=== PATIENT | female | born 1945 | race Two or more races ===

== ENCOUNTER → 2018-03-11 | Outpatient (CLI) | payer MEDICARE ==
--- NOTE | 2018-03-12 12:05 | ECHOF ---
Referral Reason:I49.8 cardiac arrythmia MEASUREMENTS -------- HEIGHT: 162.6 cm WEIGHT: 95.3 kg BP: IVSd: 1.5 cm (0.6 - 1.1) LVIDd: 3.0 cm (3.9 - 5.3) LVPWd: 1.5 cm (0.6 - 1.1) IVSs: 1.4 cm LVIDs: 1.4 cm LVPWs: 1.9 cm Ao Diam: 3.0 cm (2.0 - 3.7) AV Cusp: 1.8 cm (1.5 - 2.6) LA Diam: 3.0 cm (2.7 - 3.8) MV EXCURSION: 11.714 mm (> 18.000) MV EF SLOPE: 63 mm/s (70 - 150) EPSS: 0.8 cm MV E Antonio: 0.64 m/s MV DecT: 216 ms MV A Antonio: 0.60 m/s MV E/A Ratio: 1.07 FINDINGS -------- Sinus rhythm with extra systolic beats. This was a technically difficult study with suboptimal views. The left ventricular size is normal. There is mild concentric left ventricular hypertrophy. Overa ll left ventricular systolic function is low-normal with, an EF between 50 - 55 %. The right ventricle is normal in size and function. The left atrium is normal in size. The right atrium was not well visualized. Lumason used The aortic valve was not well visualized. The mitral valve was not well visualized. The tricuspid valve was not well visualized. The pulmonic valve was not well visualized. CONCLUSIONS -------- 1. Sinus rhythm with extra systolic beats. 2. This was a technically difficult study with suboptimal views. 3. The left ventricular size is normal. 4. There is mild concentric left ventricular hypertrophy. 5. Overall left ventricular systolic function is low-normal with, an EF between 50 - 55 %. 6. The right ventricle is normal in size and function. 7. The left atrium is normal in size. 8. The right atrium was not well visualized. 9. Lumason used 10. The aortic valve was not well visualized. 11. The mitral valve was not well visualized. 12. The tricuspid valve was not well visualized. 13. The pulmonic valve was not well visualized. PRIMARY TEACHER: Lizeth Pearson RDCS
== END | disposition home or self-care (01) ==
LOC: RADECHMAIN 14:38
PROVIDERS: ATTEND Internal Medicine
DX: I51.7 Cardiomegaly (principal); I49.8 Other specified cardiac arrhythmias
CPT/HCPCS: C8929; Q9950; 93306

== ENCOUNTER → 2018-06-14 | Outpatient (CLI) | payer MEDICARE ==
[2018-06-14 15:00] LABS: Blood Urea Nitrogen 15 mg/dL (7-17)
--- NOTE | 2018-06-14 16:14 | CT ---
EXAMINATION TYPE: CT chest w con DATE OF EXAM: 06/14/2018 COMPARISON: NONE HISTORY: cough, SOB, chest pain X [address] DLP: 827 mGycm. Automated Exposure Control for Dose Reduction was Utilized. TECHNIQUE: CT scan of the thorax is performed following with IV Contrast, patient injected with 100 mL of Isovue 300. FINDINGS: LUNGS: There is a solid 5 mm left basilar pulmonary nodule on series 4 image 42 and may contain punct ate calcifications. Right basilar 2 mm pulmonary nodule seen on the same image is also present. Subpl eural 2 mm right lower lobe pulmonary nodule is seen on image 40. Subsolid pulmonary nodule on image 32 is present within the right midlung. Subpleural 2 mm nodule on image 36 is seen within the left lo wer lobe. 3 mm and 5 mm pulmonary nodules within the left upper lobe are present on series 4 image 29 . Lungs are grossly clear with no focal consolidation. There is no pleural effusion or pneumothorax seen. The tracheobronchial tree is patent. MEDIASTINUM: There are no greater than 1 cm hilar or mediastinal lymph nodes. No pericardial effusi on is seen. Mild coronary calcifications are present. Ascending thoracic aorta is nonenlarged measur ing 3.5 cm. OTHER: Very small hiatal hernia seen. Too small to accurately characterize solitary hypoattenuated he patic lesion measures 5.5 mm on series 3 image 65. IMPRESSION: 1. Multiple bilateral subcentimeter pulmonary nodules. These are nonspecific and few contain probable punctate calcifications. Therefore these could be granulomatous or neoplastic in follow-up CT is rec ommended in 12 months to establish stability per consensus criteria from the Fleischner [employer]. 2. No suspicious adenopathy.
== END ==
LOC: RADCTMAIN 14:31
PROVIDERS: ATTEND Internal Medicine
DX: R91.8 Other nonspecific abnormal finding of lung field (principal); R06.02 Shortness of breath; R05 Cough
CPT/HCPCS: 82565; 84520; 71260; 36415; Q9967

== ENCOUNTER 2022-03-12 11:31 | Inpatient (IN) | payer MEDICARE ==
[2022-03-12] MEDS ORDERED: IPRATROPIUM 0.5 MG/2.5 ML NEBU INHALATION STA (11:57)
[2022-03-12] MEDS ORDERED: methylPREDNISolone SOD SUCCI 125 MG/2 ML VIAL IV STA (11:57)
[2022-03-12] MEDS ORDERED: ALBUTEROL NEBULIZED 2.5 MG/3 ML INHALATION STA (11:57)
--- NOTE | 2022-03-12 12:10 | ED ---
General Adult HPI - General Chief complaint: Shortness of Breath Stated complaint: SOCORRO Time Seen by Provider: 03/12/22 11:42 Source: patient, RN notes reviewed, old records reviewed Mode of arrival: wheelchair Limitations: no limitations - History of Present Illness Initial comments: 76.-year-old female presenting for evaluation of cough and dyspnea. Symptoms have been progressive over the past one week. Patient has had cough productive of white sputum. She also reports some minimal lower extremity edema. She denies fever. She was seen by her primary care physician and told that she had an irregular heartbeat. She is a current smoker. No diagnosis of COPD. - Related Data Previous Rx's Medication Instructions Recorded Naproxen [Naprosyn] 250 mg PO BID #60 tab 10/03/16 Nitrofurantoin Monohyd/M-Cryst 100 mg PO Q12HR #10 cap 10/03/16 [Macrobid] predniSONE 50 mg PO DAILY #5 tab 10/03/16 Allergies Allergy/AdvReac Type Severity Reaction Status Date / Time amoxicillin [From Augmentin] Allergy Rash/Hives Verified 03/12/22 11:38 clavulanic acid Allergy Rash/Hives Verified 03/12/22 11:38 [From Augmentin] codeine Allergy Unknown Verified 03/12/22 11:38 Penicillins Allergy Unknown Verified 03/12/22 11:38 Childhood Review of Systems ROS Statement: Those systems with pertinent positive or pertinent negative responses have been documented in the HPI. ROS Other: All systems not noted in ROS Statement are negative. Past Medical History Past Medical History: Hyperlipidemia, Hypertension, Osteoarthritis (OA) Additional Past Medical History / Comment(s): Irregular Heart Beat, defective heart valve. History of Any Multi-Drug Resistant Organisms: None Reported Past Surgical History: Breast Surgery, Tubal Ligation Past Psychological History: No Psychological Hx Reported Smoking Status: Current every day smoker Past Alcohol Use History: None Reported Past Drug Use History: None Reported General Exam Limitations: no limitations General appearance: alert, in no apparent distress Head exam: Present: atraumatic, normocephalic Eye exam: Present: normal appearance, PERRL ENT exam: Present: normal exam Neck exam: Present: normal inspection. Absent: tenderness, meningismus Respiratory exam: Present: respiratory distress, wheezes, decreased breath sounds Cardiovascular Exam: Present: regular rate, normal rhythm GI/Abdominal exam: Present: soft. Absent: distended, tenderness, guarding Extremities exam: Present: normal capillary refill, pedal edema Neurological exam: Present: alert, oriented X3, CN II-XII intact. Absent: motor sensory deficit Psychiatric exam: Present: normal affect, normal mood Skin exam: Present: warm, dry, intact. Absent: cyanosis, diaphoretic Course Vital Signs 03/12/22 03/12/22 03/12/22 11:33 12:23 12:55 Temperature 97.9 F Pulse Rate 79 76 75 Respiratory 25 H 20 Rate Blood Pressure 143/76 122/70 O2 Sat by Pulse 91 L 93 L Oximetry 03/12/22 13:08 Temperature Pulse Rate 86 Respiratory Rate Blood Pressure O2 Sat by Pulse Oximetry EKG Findings - EKG Comments: EKG Findings:: Sinus rhythm, low voltage, rate of 86, slightly prolonged OH interval, QRS duration 94, QTC 4:15, no ST segment elevation. Medical Decision Making - Medical Decision Making 77-year-old female presenting for evaluation of progressive dyspnea. She rates smoking 6 days ago. Patient wheezing throughout with moderate respiratory distress. Chest x-ray is clear. She has a normal CBC, normal CMP, negative troponin, negative BNP. Her fluid coronavirus testing is negative. Suspect this is related to an undiagnosed COPD exacerbation. I will add on a d-dimer these results are pending. Case discussed with [facility] hospitalists. - Lab Data Result diagrams: 03/12/22 12:14 03/12/22 12:14 Lab Results 03/12/22 03/12/22 03/12/22 Range/Units 12:14 12:14 12:14 WBC 10.6 (3.8-10.6) k/uL RBC 4.78 (3.80-5.40) m/uL Hgb 16.0 (11.4-16.0) gm/dL Hct 47.7 H (34.0-46.0) % MCV 99.8 (80.0-100.0) fL MCH 33.4 (25.0-35.0) pg MCHC 33.5 (31.0-37.0) g/dL RDW 13.2 (11.5-15.5) % Plt Count 272 (150-450) k/uL MPV 8.3 Neutrophils % 66 % Lymphocytes % 20 % Monocytes % 5 % Eosinophils % 6 % Basophils % 1 % Neutrophils # 7.0 (1.3-7.7) k/uL Lymphocytes # 2.2 (1.0-4.8) k/uL Monocytes # 0.5 (0-1.0) k/uL Eosinophils # 0.7 (0-0.7) k/uL Basophils # 0.1 (0-0.2) k/uL PT 10.1 (9.0-12.0) sec INR 0.9 (<1.2) APTT 23.7 (22.0-30.0) sec Sodium 138 (137-145) mmol/L Potassium 3.9 (3.5-5.1) mmol/L Chloride 104 (98-107) mmol/L Carbon Dioxide 29 (22-30) mmol/L Anion Gap 5 mmol/L BUN 18 H (7-17) mg/dL Creatinine 0.71 (0.52-1.04) mg/dL Est GFR (CKD-EPI)AfAm >90 (>60 ml/min/1.73 sqM) Est GFR (CKD-EPI)NonAf 83 (>60 ml/min/1.73 sqM) Glucose 129 H (74-99) mg/dL Plasma Lactic Acid Darryl (0.7-2.0) mmol/L Calcium 9.1 (8.4-10.2) mg/dL Magnesium 2.0 (1.6-2.3) mg/dL Total Bilirubin 0.7 (0.2-1.3) mg/dL AST 24 (14-36) U/L ALT 11 (4-34) U/L Alkaline Phosphatase 78 (38-126) U/L Troponin I (0.000-0.034) ng/mL NT-Pro-B Natriuret Pep pg/mL Total Protein 6.8 (6.3-8.2) g/dL Albumin 3.5 (3.5-5.0) g/dL Coronavirus (PCR) (Not Detectd) Influenza Type A RNA (Not Detectd) Influenza Type B (PCR) (Not Detectd) 03/12/22 03/12/22 03/12/22 Range/Units 12:14 12:14 12:14 WBC (3.8-10.6) k/uL RBC (3.80-5.40) m/uL Hgb (11.4-16.0) gm/dL Hct (34.0-46.0) % MCV (80.0-100.0) fL MCH (25.0-35.0) pg MCHC (31.0-37.0) g/dL RDW (11.5-15.5) % Plt Count (150-450) k/uL MPV Neutrophils % % Lymphocytes % % Monocytes % % Eosinophils % % Basophils % % Neutrophils # (1.3-7.7) k/uL Lymphocytes # (1.0-4.8) k/uL Monocytes # (0-1.0) k/uL Eosinophils # (0-0.7) k/uL Basophils # (0-0.2) k/uL PT (9.0-12.0) sec INR (<1.2) APTT (22.0-30.0) sec Sodium (137-145) mmol/L Potassium (3.5-5.1) mmol/L Chloride (98-107) mmol/L Carbon Dioxide (22-30) mmol/L Anion Gap mmol/L BUN (7-17) mg/dL Creatinine (0.52-1.04) mg/dL Est GFR (CKD-EPI)AfAm (>60 ml/min/1.73 sqM) Est GFR (CKD-EPI)NonAf (>60 ml/min/1.73 sqM) Glucose (74-99) mg/dL Plasma Lactic Acid Darryl 1.1 (0.7-2.0) mmol/L Calcium (8.4-10.2) mg/dL Magnesium (1.6-2.3) mg/dL Total Bilirubin (0.2-1.3) mg/dL AST (14-36) U/L ALT (4-34) U/L Alkaline Phosphatase (38-126) U/L Troponin I <0.012 (0.000-0.034) ng/mL NT-Pro-B Natriuret Pep 218 pg/mL Total Protein (6.3-8.2) g/dL Albumin (3.5-5.0) g/dL Coronavirus (PCR) (Not Detectd) Influenza Type A RNA (Not Detectd) Influenza Type B (PCR) (Not Detectd) 03/12/22 03/12/22 Range/Units 12:23 12:23 WBC (3.8-10.6) k/uL RBC (3.80-5.40) m/uL Hgb (11.4-16.0) gm/dL Hct (34.0-46.0) % MCV (80.0-100.0) fL MCH (25.0-35.0) pg MCHC (31.0-37.0) g/dL RDW (11.5-15.5) % Plt Count (150-450) k/uL MPV Neutrophils % % Lymphocytes % % Monocytes % % Eosinophils % % Basophils % % Neutrophils # (1.3-7.7) k/uL Lymphocytes # (1.0-4.8) k/uL Monocytes # (0-1.0) k/uL Eosinophils # (0-0.7) k/uL Basophils # (0-0.2) k/uL PT (9.0-12.0) sec INR (<1.2) APTT (22.0-30.0) sec Sodium (137-145) mmol/L Potassium (3.5-5.1) mmol/L Chloride (98-107) mmol/L Carbon Dioxide (22-30) mmol/L Anion Gap mmol/L BUN (7-17) mg/dL Creatinine (0.52-1.04) mg/dL Est GFR (CKD-EPI)AfAm (>60 ml/min/1.73 sqM) Est GFR (CKD-EPI)NonAf (>60 ml/min/1.73 sqM) Glucose (74-99) mg/dL Plasma Lactic Acid Darryl (0.7-2.0) mmol/L Calcium (8.4-10.2) mg/dL Magnesium (1.6-2.3) mg/dL Total Bilirubin (0.2-1.3) mg/dL AST (14-36) U/L ALT (4-34) U/L Alkaline Phosphatase (38-126) U/L Troponin I (0.000-0.034) ng/mL NT-Pro-B Natriuret Pep pg/mL Total Protein (6.3-8.2) g/dL Albumin (3.5-5.0) g/dL Coronavirus (PCR) Not Detected (Not Detectd) Influenza Type A RNA Not Detected (Not Detectd) Influenza Type B (PCR) Not Detected (Not Detectd) Disposition Clinical Impression: Acute exacerbation of chronic obstructive pulmonary disease Disposition: ADMITTED IP TO THIS HOSP Condition: Stable Is patient prescribed a controlled substance at d/c from ED?: No Referrals: Sonya Mack MD [Primary Care Provider] - 1-2 days Time of Disposition: 14:02
[2022-03-12 12:30] LABS: Basophils # (A) 0.1 k/uL (0-0.2); Basophils % (A) 1 %; Eosinophils # (A) 0.7 k/uL (0-0.7); Eosinophils % (A) 6 %; HCT 47.7 % (34.0-46.0); Lymphocytes # (A) 2.2 k/uL (1.0-4.8); Lymphocytes % (A) 20 %; MCH 33.4 pg (25.0-35.0); MCHC 33.5 g/dL (31.0-37.0); MCV 99.8 fL (80.0-100.0); Mean Platelet Volume 8.3; Monocytes # (A) 0.5 k/uL (0-1.0); Monocytes % (A) 5 %; Neutrophils % (A) 66 %; Platelet Count 272 k/uL (150-450); RBC 4.78 m/uL (3.80-5.40); RDW 13.2 % (11.5-15.5); WBC 10.6 k/uL (3.8-10.6)
[2022-03-12 12:35] LABS: INR 0.9 (<1.2); Partial Thromboplastin Time 23.7 sec (22.0-30.0); Prothrombin Time 10.1 sec (9.0-12.0)
[2022-03-12 12:42] LABS: ALT 11 U/L (4-34); AST 24 U/L (14-36); African American GFR (CKD) >90 (>60 ml/min/1.73 sqM); Albumin 3.5 g/dL (3.5-5.0); Alkaline Phosphatase 78 U/L (38-126); Anion Gap 5 mmol/L; Blood Urea Nitrogen 18 mg/dL (7-17); Calcium 9.1 mg/dL (8.4-10.2); Carbon Dioxide 29 mmol/L (22-30); Chloride 104 mmol/L (98-107); Glucose 129 mg/dL (74-99); Non-African American GFR(CKD) 83 (>60 ml/min/1.73 sqM); Sodium 138 mmol/L (137-145); Total Bilirubin 0.7 mg/dL (0.2-1.3); Total Protein 6.8 g/dL (6.3-8.2)
[2022-03-12 12:47] LABS: Potassium 3.9 mmol/L (3.5-5.1)
--- NOTE | 2022-03-12 13:50 | XR ---
EXAMINATION TYPE: XR chest 2V DATE OF EXAM: 03/12/2022 COMPARISON: 02/24/2018 HISTORY: Shortness of breath TECHNIQUE: Frontal and lateral views of the chest are obtained. FINDINGS: Scattered senescent parenchymal changes noted. Hyperinflation compatible with COPD. No evidence for infiltrate. No evidence for atelectasis. Heart size is stable. Mediastinal structures are stable and grossly unremarkable. No evidence for hilar prominence. Degenerative changes dorsal spine. IMPRESSION: 1. No evidence for acute pulmonary disease.
[2022-03-12] MEDS ORDERED: IPRATROPIUM-ALBUTEROL 3 ML NEB INHALATION PRN (14:00)
[2022-03-12] MEDS: AZITHROMYCIN 500 MG TAB PO SCH (14:23)
[2022-03-12] MEDS: IPRATROPIUM-ALBUTEROL 3 ML NEB INHALATION SCH ×2 (15:10→20:26)
[2022-03-12] MEDS: methylPREDNISolone SOD SUCCI 125 MG/2 ML VIAL IV SCH ×2 (17:32→23:59)
--- NOTE | 2022-03-12 17:38 | CT ---
CT CHEST FOR PULMONARY EMBOLISM. EXAMINATION TYPE: CT angio chest DATE OF EXAM: 03/12/2022 INDICATION: chest pain, SOB CT DLP: 527.2 mGycm, Automated exposure control for dose reduction was used. CONTRAST: Patient injected with 80cc mL of Isovue 370. COMPARISON: TECHNIQUE: CT of the chest is performed on a spiral scan at 2 mm thick sections. Study is performed with intravenous contrast timed for evaluation for pulmonary embolism. This will limit additional po rtions of the evaluation. 3-D MIP images reconstructed by the technologist are reviewed on the compu ter in the coronal and sagittal planes. FINDINGS: No persistent filling defects are evident to suggest an acute pulmonary embolism. No mediastinal or hilar adenopathy enlarged by CT criteria is evident. The ascending aorta diameter at the level of the main pulmonary artery is 3.7 cm. The main pulmonary artery diameter at the bifur cation is 2.7 cm. Small area of pneumonitis or pleural thickening is present in the posterior right apex lesion 1.2 cm. Series 401 image 34 lung windows. Punctate peripheral nodularities in the anterior lateral right upp er lung field. Series 401 image 50. Mild basilar infiltrate is present bilaterally. This is nonspecif ic. Atelectasis and pneumonia can be considered. Tiny nodularity within the lateral left upper lung f ield may remain present. No interval growth is evident. Right middle lobe nodularity from previous ex am is not identified on current study Limited CT section through the upper abdomen are unremarkable. IMPRESSIONS: 1. No acute pulmonary embolism. 2. Area of pneumonitis in the posterior right lung. Follow-up can be performed. 3. No new or increasing size nodules are evident.
--- NOTE | 2022-03-12 18:21 | HP ---
HISTORY AND PHYSICAL CHIEF COMPLAINT: Shortness of breath. HISTORY OF PRESENT ILLNESS: This 77-year-old woman with a past medical history of hypertension, hyperlipidemia, being followed by Dr. Mack in the outpatient setting, was living in [place]. The patient developed some shortness of breath over the past several days and because of the family insistence, the patient came to [facility]. The patient had bilateral rhonchi. COPD was suspected. D-dimer is also elevated. There is no history of any fever, rigor or chills. Patient has significant history of smoking, up to one and a half packs per day. The patient also had an apparent irregular heartbeat previously. Occasional PVCs are noted on the monitor. PAST MEDICAL HISTORY: Hypertension, hyperlipidemia, DJD. MEDICATIONS: Home medications are reviewed and include Macrobid and Cozaar. Doses are reviewed. ALLERGIES: Reviewed. They include AMOXICILLIN. FAMILY HISTORY: No history of heart disease or strokes in the family. SOCIAL HISTORY: History of smoking. REVIEW OF SYSTEMS: Fourteen-point review of systems negative except as mentioned earlier. PHYSICAL EXAMINATION: Pulse is 88, blood pressure 115/64, respiration 20, pulse ox 92% on 4 L. HEENT: Conjunctivae normal. Oral mucosa moist. NECK: No jugular venous distention. CARDIOVASCULAR: S1, S2 muffled. RESPIRATION: Breath sounds diminished at the bases. A few scattered rhonchi and crackles. Expiratory wheezing. ABDOMEN: Soft, obese, non-tender. LEGS: Minimal edema. NERVOUS SYSTEM: No focal deficit. SKIN: No ulcer, rash, bleeding. JOINTS: No active deforming arthropathy. LABS: CBC within normal limits. D-dimer is 1.65. ASSESSMENT: 1. Shortness of breath for evaluation; possible chronic obstructive pulmonary disease, acute exacerbation; rule out acute pulmonary embolism. 2. Rule out cardiac arrhythmia. 3. Elevated D-dimer. 4. Hypertension. 5. Hyperlipidemia. 6. Degenerative joint disease. 7. History of defective heart valve. RECOMMENDATIONS AND DISCUSSION: In this 77-year-old woman who presented with multiple complex medical issues, we will monitor the patient closely. I recommend empiric bronchodilator treatment, CT angio of the chest. Otherwise, I would also recommend resuming the home medications. DVT prophylaxis. Pulmonary consultation. Prognosis guarded because of multiple complex medical issues. Further recommendations to follow. A copy of dictation is being forwarded to Dr. Mack, who is the primary physician. MMODL / IJN: [id number] /
[2022-03-12 18:52] LABS: Appearance,Urine Clear (Clear); Bilirubin,Urine Negative (Negative); Blood,Urine Negative (Negative); Color,Urine Yellow; Glucose,Urine (UA) Negative (Negative); Ketones,Urine Trace (Negative); Leukocyte Esterase,Urine Negative (Negative); Nitrite,Urine Negative (Negative); PH, Urine 5.5 (5.0-8.0); Protein,Urine Trace (Negative); Urobilinogen,Urine <2.0 mg/dL (<2.0)
[2022-03-12 19:01] LABS: Specific Gravity,Urine 1.047 (1.001-1.035)
--- NOTE | 2022-03-12 19:21 | US ---
EXAMINATION TYPE: US venous doppler duplex LE BI DATE OF EXAM: 03/12/2022 7:07 PM COMPARISON: NONE CLINICAL HISTORY: dvt. Swollen feet SIDE PERFORMED: Bilateral TECHNIQUE: The lower extremity deep venous system is examined utilizing real time linear array sonog johanna with graded compression, doppler sonography and color-flow sonography. VESSELS IMAGED: Common Femoral Vein Deep Femoral Vein Greater Saphenous Vein * Femoral Vein Popliteal Vein Small Saphenous Vein * Proximal Calf Veins (* superficial vessels) Right Leg: Negative for DVT Left Leg: Negative for DVT IMPRESSION: 1. Bilateral lower extremity ultrasound negative for deep venous thrombosis.
[2022-03-13 05:21] VITALS: RESP 18; TEMP 98.2
[2022-03-13] MEDS: methylPREDNISolone SOD SUCCI 125 MG/2 ML VIAL IV SCH ×2 (05:25→13:03)
[2022-03-13 05:43] VITALS: BP 97/59
[2022-03-13] MEDS: AZITHROMYCIN 500 MG TAB PO SCH (08:44)
[2022-03-13] MEDS: LOSARTAN 50 MG TAB PO SCH ×2 (08:44→08:45)
[2022-03-13] MEDS: IPRATROPIUM-ALBUTEROL 3 ML NEB INHALATION SCH ×3 (08:58→15:15)
[2022-03-13] MEDS ORDERED: ESCITALOPRAM 5 MG TAB PO SCH (09:00)
[2022-03-13] MEDS ORDERED: ATORVASTATIN 20 MG TAB PO SCH (09:00)
[2022-03-13] MEDS ORDERED: hydroCHLOROthiazide 12.5 MG CAP PO SCH (09:00)
[2022-03-13] MEDS ORDERED: ASPIRIN 81 MG PO SCH (09:00)
[2022-03-13 09:24] LABS: Basophils # (A) 0.03 X 10*3/uL (0.00-0.10); Basophils % (A) 0.2 %; Eosinophils # (A) 0 X 10*3/uL (0.04-0.35); Eosinophils % (A) 0 %; HCT 42.9 % (37.2-46.3); HGB 13.9 g/dL (12.0-15.0); Immature Grans, Automated 0.9 %; Lymphocytes # (A) 1.18 X 10*3/uL (0.90-5.00); Lymphocytes % (A) 8.1 %; MCHC 32.4 g/dL (32.0-37.0); MCV 98.6 fL (80.0-97.0); Monocytes # (A) 0.24 X 10*3/uL (0.20-1.00); Monocytes % (A) 1.6 %; NRBC Per 100 WBC 0 /100 WBCS (0.0-0.0); Neutrophils # (A) 12.98 X 10*3/uL (1.80-7.70); Neutrophils % (A) 89.2 %; Platelet Count 244 X 10*3/uL (140-440); RBC 4.35 X 10*6/uL (4.10-5.20); RDW 12.9 % (11.5-14.5); WBC 14.56 X 10*3/uL (4.50-10.00)
[2022-03-13 09:54] LABS: African American GFR (CKD) 96.9 (60.0-200.0); Anion Gap 10.9 mmol/L (10.00-18.00); BUN/Creat Ratio 28.29 Ratio (12.00-20.00); Blood Urea Nitrogen 19.8 mg/dL (9.0-27.0); Calcium 9.1 mg/dL (8.7-10.3); Carbon Dioxide 28.1 mmol/L (20.0-27.5); Non-African American GFR(CKD) 83.6 (60.0-200.0); Potassium 4.3 mmol/L (3.5-5.5)
--- NOTE | 2022-03-13 10:35 | P.CNPUL ---
History of Present Illness Consult date: 03/13/22 Requesting physician: Ray E Bri Reason for consult: dyspnea, COPD, abnormal CXR/CT Chief complaint: Shortness of breath, cough, congestion History of present illness: This is a very pleasant 77-year-old female patient who follows with Dr. Mack as her primary care provider. She has a history of morbid obesity, arthritis, hypertension, hyperlipidemia, anicteric and ongoing tobacco dependence of greater than 60 years. She had recently moved to [place] but was down here to see Dr. Mack for complaints of increasing shortness of breath, dyspnea on exertion and cough of clear productive sputum as well as UTI symptoms and possible depression. She was initiated on Macrobid and Lexapro, but was not feeling much better and came to the emergency room yesterday. Chest x-ray reveals no evidence of acute pulmonary disease. CT angiogram revealed no acute pulmonary process. Area of pneumonitis in the posterior right lung. Possibly chronic. Doppler of the lower extremities revealed no evidence of DVT. White count 14.5. Hemoglobin 13.9. D-dimer 1.65. Sodium 140. Potassium 4.3. BUN 20. Creatinine 0.7. Glucose 151. Coronavirus and influenza screens were negative. She is seen today in consultation on the regular medical floor. She's currently sitting up in bed. Awake and alert in no acute distress. She is maintaining O2 saturations in the 90s on 4 L nasal cannula. She drops to 87% on room air with minimal activity. She is initiated on DuoNeb inhalations, Symbicort, IV Solu-Medrol. Empiric antibiotics in the form of azithromycin. Review of Systems REVIEW OF SYSTEMS: CONSTITUTIONAL: Denies any recent significant weight loss or weight gain. EYES: Denies change in vision. EARS, NOSE, MOUTH, THROAT: Denies headaches, denies sore throat. CARDIOVASCULAR: Denies chest pain, palpitations or syncopal episodes. RESPIRATORY: Positive for shortness of breath, cough, congestion no hemoptysis. GASTROINTESTINAL: Denies change in appetite, denies abdominal pain GENITOURINARY: Denies hematuria, denies infections. MUSKULOSKELETAL: Denies pain, denies swelling. INTEGUMENTARY: Denies rash, denies eczema. NEUROLOGICAL: Denies recent memory loss, no recent seizure activity. PSYCHIATRIC: Denies anxiety, denies depression. HEMATOLOGIC/LYMPHATIC: Denies anemia, denies enlarged lymph nodes. Past Medical History Past Medical History: Hyperlipidemia, Hypertension, Osteoarthritis (OA) Additional Past Medical History / Comment(s): Irregular Heart Beat, defective heart valve. History of Any Multi-Drug Resistant Organisms: None Reported Past Surgical History: Breast Surgery, Tubal Ligation Past Psychological History: No Psychological Hx Reported Smoking Status: Former smoker Past Alcohol Use History: None Reported Past Drug Use History: None Reported - Past Family History Father Additional Family Medical History / Comment(s): Enlarged heart. Mother Additional Family Medical History / Comment(s): Heart Disease Medications and Allergies Home Medications Medication Instructions Recorded Confirmed Type Aspirin EC [Ecotrin Low Dose] 81 mg PO DAILY 03/12/22 03/12/22 History Atorvastatin [Lipitor] 20 mg PO DAILY 03/12/22 03/12/22 History Escitalopram [Lexapro] 5 mg PO DAILY 03/12/22 03/12/22 History Hydrochlorothiazide 12.5 mg PO DAILY 03/12/22 03/12/22 History [hydroCHLOROthiazide] Losartan [Cozaar] 50 mg PO DAILY 03/12/22 03/12/22 History Nitrofurantoin Monohyd/M-Cryst 100 mg PO Q12HR 03/12/22 03/12/22 History [Macrobid] Allergies Allergy/AdvReac Type Severity Reaction Status Date / Time amoxicillin [From Augmentin] Allergy Rash/Hives Verified 03/12/22 14:44 clavulanic acid Allergy Rash/Hives Verified 03/12/22 14:44 [From Augmentin] codeine Allergy Unknown Verified 03/12/22 14:44 Penicillins Allergy Rash/Hives Verified 03/12/22 14:44 Physical Exam Vitals: Vital Signs Temp Pulse Pulse Pulse Pulse Resp BP 03/13/22 09:59 74 86 03/13/22 09:08 75 03/13/22 08:59 73 03/13/22 05:42 03/13/22 05:00 98.2 F 75 18 03/12/22 20:35 83 03/12/22 20:26 85 03/12/22 20:11 98.1 F 102 H 20 03/12/22 17:34 98.1 F 101 H 19 03/12/22 15:25 84 03/12/22 15:11 89 03/12/22 14:11 88 20 116/64 03/12/22 13:08 86 03/12/22 12:55 75 03/12/22 12:23 76 20 122/70 03/12/22 11:33 97.9 F 79 25 H 143/76 BP Pulse Ox Pulse Ox Pulse Ox 03/13/22 09:59 93 L 87 L 03/13/22 09:08 03/13/22 08:59 03/13/22 05:42 97/59 03/13/22 05:00 100/46 92 L 03/12/22 20:35 03/12/22 20:26 03/12/22 20:11 131/69 93 L 03/12/22 17:34 117/70 92 L 03/12/22 15:25 03/12/22 15:11 03/12/22 14:11 92 L 03/12/22 13:08 03/12/22 12:55 03/12/22 12:23 93 L 03/12/22 11:33 91 L Intake and Output 03/12/22 03/13/22 03/13/22 22:59 06:59 14:59 Intake Total 0 Balance 0 Intake: Oral 0 Other: Voiding Method Toilet Toilet # Voids 2 1 Weight 106.594 kg GENERAL EXAM: Alert, pleasant, morbidly obese 77-year-old female patient on 4 L nasal cannula, comfortable in no apparent distress. HEAD: Normocephalic. EYES: Normal reaction of pupils, equal size. NOSE: Clear with pink turbinates. THROAT: No erythema or exudates. NECK: No masses, no JVD. CHEST: No chest wall deformity. LUNGS: Equal air entry with bilateral end expiratory wheeze, diminished. CVS: S1 and S2 normal with no audible murmur, regular rhythm. ABDOMEN: No hepatosplenomegaly, normal bowel sounds, no guarding or rigidity. SPINE: No scoliosis or deformity SKIN: No rashes CENTRAL NERVOUS SYSTEM: No focal deficits, tone is normal in all 4 extremities. EXTREMITIES: There is no peripheral edema. No clubbing, no cyanosis. Peripheral pulses are intact. Results - Laboratory Findings CBC and BMP: 03/13/22 05:41 03/13/22 05:41 PT/INR, D-dimer PT 10.1 sec (9.0-12.0) 03/12/22 12:14 INR 0.9 (<1.2) 03/12/22 12:14 D-Dimer 1.65 mg/L FEU (<0.60) H 03/12/22 14:10 Abnormal lab findings: Abnormal Labs 03/12/22 03/12/22 03/12/22 12:14 12:14 14:10 WBC Hct 47.7 H MCV Immature Gran # Neutrophils # Eosinophils # D-Dimer 1.65 H Carbon Dioxide BUN 18 H BUN/Creatinine Ratio Glucose 129 H Ur Specific [place] Urine Protein Urine Ketones 03/12/22 03/13/22 03/13/22 18:40 05:41 05:41 WBC 14.56 H Hct MCV 98.6 H Immature Gran # 0.13 H Neutrophils # 12.98 H Eosinophils # 0 L D-Dimer Carbon Dioxide 28.1 H BUN BUN/Creatinine Ratio 28.29 H Glucose 151 H Ur Specific [place] 1.047 H Urine Protein Trace H Urine Ketones Trace H - Diagnostic Findings Chest x-ray: image reviewed CT scan - chest: image reviewed Assessment and Plan Assessment: 1 Acute hypoxemic respiratory failure secondary to an acute exacerbation of suspected chronic obstructive pulmonary disease 2 Chronic and ongoing tobacco dependence of greater than 60 years 3 Morbid obesity 4 Arthritis 5 Recent urinary tract infection 6 History of depression 7 Hypertension 8 Hyperlipidemia Plan: The patient was seen and evaluated Continue bronchodilators, IV solu Medrol, azithromycin Educated regarding the importance of complete smoking cessation The patient is quite adamant about going home today She is not cleared for discharge from the pulmonary standpoint Rationale of continuing inpatient treatment given to the patient and family at the bedside If she goes AMA however, would recommend Symbicort, albuterol, prednisone taper Evaluate for home oxygen Offer the patient an appointment in our office and pulmonary function testing We will continue to follow and make further recommendations based on her clinical status I have personally seen and examined the patient, performed the documentation and the assessment and plan as written. Number of minutes spent on the visit: 20.
[2022-03-13 12:13] VITALS: PULSE 80
--- NOTE | 2022-03-13 12:33 | P.EN ---
Patient has COPD and will need 4 L of oxygen to manage COPD for discharge. Patient also requiring nebulized treatments 4 times daily and as needed of DuoNeb on discharge to manage COPD
[2022-03-13] MEDS ORDERED: SYMBICORT 160-4.5 MCG INHALER INHALATION SCH (20:00)
--- NOTE | 2022-03-14 09:51 | P.DS ---
Providers Date of admission: 03/12/22 14:00 Expected date of discharge: 03/13/22 Attending physician: Ray Gregory MD Consults: 03/12/22 16:19 Consult Physician Routine Consulting Provider: Toni Stockton Consult Reason/Comments: copd? Do you want consulting provider notified?: Yes Primary care physician: Sonya Mack Hospital Course: Final diagnosis Shortness of breath for evaluation, chronic obstructive pulmonary disease, acute exacerbation, ruled out acute pulmonary embolism History of atrial fibrillation Elevated d-dimer Hypertension Hyperlipidemia Degenerative joint disease History of defective heart valve Former nicotine dependence Discharge disposition Patient is leaving against medical cash poster and will be signing the AMA paperwork. Patient will follow-up with Dr. Mack in the outpatient setting upon discharge. 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 Patient will be given oral Zithromax for 5 days to complete the course along with a prednisone taper and inhalers along with nebulizer and supplies. Patient also requiring 4 L of oxygen to manage COPD which is being arranged. Total time taken is greater than 35 minutes. Hospital course This is a 77-year-old male who was recently admitted with increasing shortness of breath that had progressively been getting worse and family convinced the patient to come in for evaluation. Patient lives in the [facility] although follows with Dr. Mack and reports to seeing her twice yearly. Patient was noted to have bilateral rhonchi and questionable pneumonia and also had an elevated d-dimer and underwent CTA along with venous Doppler testing to rule out embolism and DVT which were both negative. Patient continues with significant shortness of breath and on IV steroids along with breathing inhalational treatments and continues to require 4 L of oxygen. Patient was not normally wearing oxygen in the outpatient setting. Patient has persistent ongoing home and was evaluated by Dr. Stockton and recommending continued hospitalization for further treatment. Patient is adamant about leaving and will be leaving AGAINST MEDICAL ADVICE. Lengthy discussion was had with the patient along with her granddaughter at the bedside and also with Dr. Mack to discuss the treatment plan and patient continues to report she is leaving today. Case management following as patient will require 4 L of oxygen to manage COPD along with nebulized treatments and this is being arranged to set up for the patient before leaving. Patient will also be given oral Zithromax for the next 5 days and also a prednisone taper along with nebulized treatments and inhalers for discharge. Symbicort was not covered under insurance and was changed to Trilogy. Strongly encourage the patient to follow-up with primary care provider Dr. 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 Again patient is not being discharged but is leaving AGAINST MEDICAL ADVICE and all the risks and benefits were discussed in detail and patient is persistent to leave. Dr. Mack was notified and a copy of this dictation will be sent to her. Currently no reports of chest pain, worsening shortness of breath, or palpitations. Patient is afebrile. No reports of nausea or vomiting and patient is tolerating diet. On exam vital signs are stable. Cardio S1, S2 are muffled. Respiratory system shows diminished breath sounds at the bases with expiratory wheezing and scattered rhonchi noted. Abdomen is soft and obese, and nontender. Nervous system shows no focal deficits Please refer to medication reconciliation sheet for a list of medications. The impression and plan of care has been dictated by Jessica Shepherd, Nurse Practitioner as directed. Dr. Tony MD I have performed a history and examination and MDM of this patient, discussed the same with the dictator, and agree with the dictator's assessment and plan as written ,documented as a scribe. Based on total visit time, I have performed more than 50% of the visit. Patient Condition at Discharge: Poor Plan - Discharge Summary New Discharge Prescriptions: New Ipratropium-Albuterol Nebulize [Duoneb 0.5 mg-3 mg/3 ml Soln] 3 ml INHALATION RT-QID 30 Days #120 each predniSONE 10 mg PO DIRECTED #42 tab Azithromycin [Zithromax] 500 mg PO DAILY@1500 5 Days #5 tab Ipratropium-Albuterol Nebulize [Duoneb 0.5 mg-3 mg/3 ml Soln] 3 ml INHALATION RT-Q4H PRN ml PRN Reason: Shortness Of Breath Or Wheezing Budesonide-Formot 160-4.5 Mcg [Symbicort 160-4.5 Mcg Inhaler] 2 puff INHALATION RT-BID 30 Days #1 gm Albuterol Inhaler [Ventolin Hfa Inhaler] 1 puff INHALATION RT-QID #8 gm Continue Losartan [Cozaar] 50 mg PO DAILY Atorvastatin [Lipitor] 20 mg PO DAILY Aspirin EC [Ecotrin Low Dose] 81 mg PO DAILY Hydrochlorothiazide [hydroCHLOROthiazide] 12.5 mg PO DAILY Escitalopram [Lexapro] 5 mg PO DAILY Discontinued Nitrofurantoin Monohyd/M-Cryst [Macrobid] 100 mg PO Q12HR Discharge Medication List Aspirin EC [Ecotrin Low Dose] 81 mg PO DAILY 03/12/22 [History] Atorvastatin [Lipitor] 20 mg PO DAILY 03/12/22 [History] Escitalopram [Lexapro] 5 mg PO DAILY 03/12/22 [History] Hydrochlorothiazide [hydroCHLOROthiazide] 12.5 mg PO DAILY 03/12/22 [History] Losartan [Cozaar] 50 mg PO DAILY 03/12/22 [History] Albuterol Inhaler [Ventolin Hfa Inhaler] 1 puff INHALATION RT-QID #8 gm 03/13/22 [Rx] Azithromycin [Zithromax] 500 mg PO DAILY@1500 5 Days #5 tab 03/13/22 [Rx] Budesonide-Formot 160-4.5 Mcg [Symbicort 160-4.5 Mcg Inhaler] 2 puff INHALATION RT-BID 30 Days #1 gm 03/13/22 [Rx] Ipratropium-Albuterol Nebulize [Duoneb 0.5 mg-3 mg/3 ml Soln] 3 ml INHALATION RT-Q4H PRN ml 03/13/22 [Rx] Ipratropium-Albuterol Nebulize [Duoneb 0.5 mg-3 mg/3 ml Soln] 3 ml INHALATION RT-QID 30 Days #120 each 03/13/22 [Rx] predniSONE 10 mg PO DIRECTED #42 tab 03/13/22 [Rx] Follow up Appointment(s)/Referral(s): Sonya Mack MD [Primary Care Provider] - 1-2 days Toni Stockton MD [STAFF PHYSICIAN] - 1 Week Activity/Diet/Wound Care/Special Instructions: Patient is leaving AGAINST MEDICAL ADVICE Patient needs outpatient follow-up with primary care provider on discharge Follow-up with pulmonary Patient requiring 4 L of oxygen to manage COPD Continue with breathing inhalational treatments 4 times daily and as needed Continue taking medications as prescribed Avoid tobacco use Discharge Disposition: Left Against Medical Advice
== END 2022-03-13 15:15 | disposition left against medical advice (07) | DRG 190 ==
LOC: EC 11:31 → 5NMEDONC 14:00
PROVIDERS: ADMIT Internal Medicine; ATTEND Internal Medicine
DX: J44.1 Chronic obstructive pulmonary disease with (acute) exacerbation (principal); J96.01 Acute respiratory failure with hypoxia; Z68.41 Body mass index [BMI] 40.0-44.9, adult; Z53.29 Procedure and treatment not carried out because of patient's decision for other reasons; E66.01 Morbid (severe) obesity due to excess calories; R79.89 Other specified abnormal findings of blood chemistry; E78.5 Hyperlipidemia, unspecified; F17.210 Nicotine dependence, cigarettes, uncomplicated; I10 Essential (primary) hypertension; F32.A Depression, unspecified; I48.91 Unspecified atrial fibrillation; I49.3 Ventricular premature depolarization; M19.90 Unspecified osteoarthritis, unspecified site; Z79.82 Long term (current) use of aspirin; Z79.899 Other long term (current) drug therapy; Z88.8 Allergy status to other drugs, medicaments and biological substances; Z20.822 Contact with and (suspected) exposure to COVID-19; Z88.1 Allergy status to other antibiotic agents; Z88.0 Allergy status to penicillin; Z88.5 Allergy status to narcotic agent; Z98.51 Tubal ligation status
CPT/HCPCS: 36415; 71046; 71275; 80048; 80053; 81003; 83605; 83735; 83880; 84484; 85025; 85379; 85610; 85730; 87502; 87635; 93005; 93970; 94640; 96374; 99285